=== PATIENT | male | born 1970 | race African-American/Black ===

== ENCOUNTER 2018-07-03 19:06 | Emergency (ER) | payer BC ==
[~2018-07-03] VITALS: Ht 177.8 cm; Wt 136.1 kg
--- NOTE | 2018-07-03 21:22 | Diagnostic Imaging Report ---
Frontal and lateral views of the chest. HISTORY: C/O BRONCHITIS, cough, nausea COMPARISON: None available. DISCUSSION: Lungs: The lungs are well inflated. No evidence of a consolidative pneumonia or pulmonary alveolar edema. Pleura: No pleural effusion or pneumothorax. Heart and mediastinum: The cardiomediastinal silhouette appears unremarkable. Bones and soft tissues: Appear unremarkable. IMPRESSION: No consolidative pneumonia. Signed by: Dr. Juanjose Gray D.O., M.M.M. on 07/03/2018 9:19 PM
[2018-07-03 22:29] VITALS: BP 158/70
== END 2018-07-03 22:31 | disposition home or self-care (01) ==
LOC: ER 19:06
DX: R05 Cough (principal); J30.1 Allergic rhinitis due to pollen; J30.2 Other seasonal allergic rhinitis; I10 Essential (primary) hypertension; E11.9 Type 2 diabetes mellitus without complications; E78.5 Hyperlipidemia, unspecified; E66.9 Obesity, unspecified
CPT/HCPCS: 71046; 99283